=== PATIENT | female | born 1945 | race African-American/Black ===

== ENCOUNTER 2021-10-15 12:42 | Inpatient (IN) | payer MEDICARE, MEDICAID ==
[~2021-10-15] VITALS: Ht 165.1 cm; Wt 49.9 kg
[2021-10-15 14:38] LABS: HEMATOCRIT. 38.3 % (36.0-48.0); HEMOGLOBIN. 12.3 g/dL (12.0-16.0); LYMPHOCYTES % 7.6 % (20.0-50.0); MEAN CORPUSCULAR HEMOGLOBIN 29.3 pg (28.0-32.0); MEAN CORPUSCULAR VOLUME 91.4 fL (81.0-99.0); MEAN PLATELET VOLUME 7.6 fl (7.4-10.4); NEUTROPHILS % 87.4 % (40.0-76.0); PLATELET 207 x1000/uL (130-400); RED BLOOD CELL COUNT 4.19 mill/uL (4.2-5.4); RED CELL DISTRIBUTION WIDTH 13.5 % (11.6-14.6)
[2021-10-15 16:09] LABS: CLARITY URINE CLEAR (CLEAR); COLOR URINE DARK YELLOW (YELLOW); KETONES URINE 1+ (NEGATIVE); LEUKOCYTE ESTERASE URINE 2+ (NEGATIVE); NITRITE URINE NEGATIVE (NEGATIVE); OCCULT BLOOD URINE NEGATIVE (NEGATIVE); PH URINE 5.5 (4.5-8.0); PROTEIN URINE 1+ (NEGATIVE); SPECIFIC GRAVITY URINE 1.032 (1.005-1.030)
[2021-10-15 16:24] LABS: CHLORIDE 102 mEq/L (98-107)
[2021-10-15] MEDS ORDERED: CEFTRIAXONE 1 G PREMIX 50 ML IV ONE (17:45)
[2021-10-15] MEDS ORDERED: SODIUM CHLORIDE 0.9% 1,000 ML IV ONE (20:30)
[2021-10-15] MEDS ORDERED: SODIUM CHLORIDE 0.9% 1,000 ML IV SCH (23:30)
[2021-10-15] MEDS ORDERED: ONDANSETRON HCL 4MG/2ML INJ IV PRN (23:30)
[2021-10-15] MEDS ORDERED: DOCUSATE SODIUM 100MG CAPSULE PO PRN (23:30)
[2021-10-15] MEDS ORDERED: ACETAMINOPHEN 325MG TABLET PO PRN (23:30)
[2021-10-15] MEDS ORDERED: MAGNESIUM/ALUMINUM HYDROXIDE/SIMETHICONE 30ML UDC PO PRN (23:30)
[2021-10-15] MEDS ORDERED: CLONIDINE 0.1MG TABLET PO PRN (23:30)
[2021-10-15] MEDS ORDERED: IPRATROPIUM/ALBUTEROL 0.5-3(2.5)MG/3ML NEB NEB PRN (23:30)
[2021-10-16 01:17] LABS: HEPATITIS B SURFACE ANTIGEN NEGATIVE
[2021-10-16 05:59] LABS: BASOPHILS % 0.1 % (0.0-2.0); HEMATOCRIT. 36.2 % (36.0-48.0); HEMOGLOBIN. 11.6 g/dL (12.0-16.0); MEAN CORPUSCULAR HEMOGLOBIN 28.8 pg (28.0-32.0); MEAN CORPUSCULAR VOLUME 90.1 fL (81.0-99.0); MEAN PLATELET VOLUME 7.1 fl (7.4-10.4); MONOCYTES % 2.9 % (2.0-8.0); PLATELET 217 x1000/uL (130-400); RED BLOOD CELL COUNT 4.02 mill/uL (4.2-5.4); RED CELL DISTRIBUTION WIDTH 13.5 % (11.6-14.6)
[2021-10-16 06:07] LABS: CHLORIDE 106 mEq/L (98-107)
[2021-10-16 06:13] LABS: LDL CHOLESTEROL 168 mg/dL (5-100)
[2021-10-16 06:14] LABS: HDL CHOLESTEROL 39 mg/dL (40-59)
[2021-10-16 06:16] LABS: CREATINE KINASE 42 IU/L (26-192)
[2021-10-16 06:17] LABS: CREATINE KINASE MB FRACTION 1.3 ng/mL (0.5-3.6)
[2021-10-16] MEDS ORDERED: HEPARIN 5000 UNITS/ML VIAL SUBCUT SCH (09:00)
[2021-10-16 09:30] VITALS: BP 115/83
[2021-10-16 14:36] LABS: *BARBITURATES SCREEN URINE NEGATIVE (NEGATIVE); CANNABINOID URINE SCREEN NEGATIVE (NEGATIVE)
[2021-10-16 14:37] LABS: *AMPHETAMINES SCREEN URINE NEGATIVE (NEGATIVE); *BENZODIAZEPINES SCREEN URINE NEGATIVE (NEGATIVE); *COCAINE SCREEN URINE NEGATIVE (NEGATIVE); METHADONE URINE SCREEN NEGATIVE (NEGATIVE)
[2021-10-16 14:38] LABS: OPIATES URINE SCREEN NEGATIVE (NEGATIVE); PHENCYCLIDINE URINE SCREEN NEGATIVE (NEGATIVE)
[2021-10-16 16:00] VITALS: BP 114/73
[2021-10-16] MEDS ORDERED: POTASSIUM CHLORIDE 20MEQ TABLET SR PO NR (16:00)
[2021-10-16 16:49] LABS: CREATINE KINASE 67 IU/L (26-192)
[2021-10-16 16:50] LABS: CREATINE KINASE MB FRACTION 1.6 ng/mL (0.5-3.6)
[2021-10-16 18:15] VITALS: BP 115/83
[2021-10-16 18:21] VITALS: BP 115/83
[2021-10-16] MEDS ORDERED: CEFTRIAXONE 1,000 MG in DEXTROSE 5% WATER 50 ML IV SCH (21:00)
== END 2021-10-16 19:06 | disposition home or self-care (01) | DRG 153 ==
LOC: ER 12:42 → 6EST 20:24 → EDBEDREQ 20:32 → EDBEDREQTM 20:32 → ENRESERV 10-16 07:55
PROVIDERS: ADMIT Internal Medicine; ATTEND Internal Medicine
DX: J02.9 Acute pharyngitis, unspecified (principal); N39.0 Urinary tract infection, site not specified; E78.5 Hyperlipidemia, unspecified; E87.6 Hypokalemia; F03.90 Unspecified dementia, unspecified severity, without behavioral disturbance, psychotic disturbance, mood disturbance, and anxiety; R74.01 Elevation of levels of liver transaminase levels; Z20.822 Contact with and (suspected) exposure to COVID-19
CPT/HCPCS: 36415; 80053; 80061; 80305; 81003; 82550; 82553; 83036; 84443; 84484; 85025; 86705; 86709; 86803; 87340; 87426; 93005; 93970; 99285; J0696; J1644; J7030